=== PATIENT | female | born 1975 | race Caucasian/White ===

== ENCOUNTER 2019-07-09 07:25 | Inpatient (IN) ==
[~2019-07-09 07:25] MED LIST: CITRIC ACID/SODIUM CITRATE 15 ML UDC PO SCH
--- OUTSIDE RECORDS SUMMARY | 2019-07-09 07:28 | External Medical Summary | Continuity of Care Document ---
:1975 Author Name Erica Langley, Provider Address Unavailable Unavailable , Care Team Providers Name Role Phone Unavailable Unavailable Unavailable PCP, UNKNOWN Unavailable Unavailable Unavailable Unavailable Unavailable Assessments Assessed Problems:Blighted Ovum Problems Elderly multigravida with antepartum con dition or complication (659.63) (O09.529) Supervision of normal (V22.1) (Z34.90) Blighted Ovum (631) Encounter for routine gynecological examination (V72.31) (Z0 1.419) Headache (784.0) (R51) Esophageal reflux (530.81) (K21.9) , threatened, antepartum (640.03) (O20.0) Allergies and Adverse Reactions No Known Drug Allergies (Allergy) Medications Medications not documented Procedures History of Appendectomy Status: Complete d Supervision of normal Immunizations Immunizations not documented Plan of Treatment Planned Observations Planned Goals not documented Results No Known Results Results not documented
[2019-07-09] MEDS ORDERED: OXYTOCIN 30 UNITS/500 ML BAG IV PRN (08:38)
[2019-07-09] MEDS ORDERED: PENICILLIN G POTASSIUM 6 MU in DEXTROSE 5% 250 ML IV STA (08:38)
[2019-07-09] MEDS: LACTATED RINGER'S 1,000 ML IV PRN ×2 (08:57→13:16)
[2019-07-09 09:02] LABS: Hematocrit (blood only) 34.7 % (37-47); Hemoglobin 11.8 g/dL (12.0-16.0); Mean Corpuscular Hemoglobin 30.6 pg (25-34); Mean Corpuscular Volume 89.9 fL (80-100); Mean Platelet Volume 10.5 fL (7.4-10.4); Platelet Count 147 K/uL (130-400); RDW Coefficient of Variation 14.3 % (11.5-14.5); RDW Standard Deviation 46.7 fL (36.4-46.3); Red Blood Count 3.86 M/uL (4.2-5.4); White Blood Count 9.17 K/uL (4.8-10.8)
[2019-07-09 09:25] LABS: Alanine Aminotransferase 19 U/L (12-78); Albumin Level 2.5 gm/dl (3.4-5.0); Aspartate Aminotransferase 19 U/L (15-37); BUN Creatinine Ratio 9.6 (10-20); Bilirubin Direct < 0.1 mg/dl (0-0.2); Blood Urea Nitrogen 6 mg/dl (7-18); Calcium 8.5 mg/dl (8.5-10.1); Carbon Dioxide 23 mmol/L (21-32); Chloride 109 mmol/L (98-107); Creatinine Clr Calc Pharmacy 150.6 ml/min; Est GFR (African American) 129.2; Est GFR (Non-African American) 111.5; Glucose 95 mg/dl (70-99); Potassium 3.8 mmol/L (3.5-5.1); Sodium 139 mmol/L (136-145)
[2019-07-09 09:27] LABS: Albumin Globulin Ratio 0.6 (0.9-2); Alkaline Phosphatase 93 U/L (45-117); Bilirubin,Total 0.2 mg/dl (0.2-1); Total Protein 6.5 gm/dl (6.4-8.2)
[2019-07-09] MEDS ORDERED: LACTATED RINGER'S 1,000 ML IV SCH ×3 (10:15→15:45)
--- NOTE | 2019-07-09 10:16 | History & Physical Report ---
Date of Service July 09, 2019 Assessment & Plan (1) Pre-existing diabetes mellitus during in third trimester: (2) Transverse lie: 44 yo at 39.1 wks with transverse lie, Type II DM, on insulin, CHT on Labetalol and Aspirin and Class II Obesity, GSB+ VSS Afebrile FHR reassuring Discussed ECV with risks and benefits and success rate Discussed Primary C section as major surgery with its risks She declined ECV and desires Primary C section All questions were answered (3) Pre-existing diabetes mellitus affecting in third trimester, antepartum: (4) Chronic hypertension during , antepartum: (5) Obesity affecting in third trimester, antepartum: History of Present Illness Primary Care Provider: NO PCP Patient is a 44 yo female at 39.1 wks ( confirmed with 1st trimester US) who is scheduled for IOL at term with oblique presentation, from office on 07/06 She has no complaints No cyxs/ LOF/VB +FM's No WRIGHT/ Change in vision/ N&V Her has been complicated by 1) AMA: declined genetic screening 2) Type II DM, on insulin 3) CHT: on Labetalol, Aspirin 4) GBS+ 5) h/o macrosomia 6) Class II Obesity Allergies Allergy/AdvReac Type Severity Reaction Status Date / Time metformin AdvReac Gastrointestinal Verified 07/09/19 07:20 Upset Home Medications Home Medications Medication Instructions Recorded Confirmed Type PNV cmb#95-ferrous fumarate-FA 1 tab PO DAILY 07/09/19 07/09/19 History [] aspirin 81 mg PO DAILY 07/09/19 07/09/19 History ferrous sulfate [iron] 1 mg PO DAILY 07/09/19 07/09/19 History insulin glargine [Lantus Solostar 44 unit SUBCUT HS 07/09/19 07/09/19 History U-100 Insulin] labetalol 100 mg PO BID 07/09/19 07/09/19 History Patient History Medical History Advanced maternal age (AMA), 40 years or greater Dyslipidemia Hypertension affecting for past 7 years Pertussis 2015 Type 2 diabetes mellitus for past 7 years; has been on Insulin Surgical History Hx of appendectomy 1990 Family History Sister Diabetes Social History Preferred Language: Georgian Communication Ability: Effective Clinical Care Coordinator Required: Yes Beliefs That Will Affect Care: None marital status: Current Living Situation: Spouse and Family Other Information That Helps Us Care for You: No Feels Safe at Home: Yes Safety Concerns: Feels Safe At This Time Smoking Status: Never smoker Hx Alcohol Use: No Hx Substance Use: No OB History 7 FT 's 1 SAB Review of Systems All systems reviewed & are unremarkable except as noted in HPI & below Physical Exam Constitutional: WD/WN, vitals as above well developed and well nourished Comfortable Gastrointestinal (Abdomen): Abd: soft, NT, Gravid and obese Genitourinary: normal external appearance Cervix : 1-2 cm/ thick, -5, no presenting part Bed side US: Head at left uterus, back up transverse, Placenta anterior, EDGARDO 16 cm Results & Data Vital Signs (Past 12 Hours) Vital Signs Temp Pulse Resp BP 07/09/19 08:05 93 H 141/81 H 07/09/19 07:52 37.1 C 93 H 20 143/81 H 07/09/19 07:33 93 H 143/81 H 07/09/19 07:32 37.1 C 20 Laboratory Results Lab Results 07/09/19 07/09/19 07/09/19 Range/Units 08:42 08:49 08:49 WBC 9.17 (4.8-10.8) K/uL RBC 3.86 L (4.2-5.4) M/uL Hgb 11.8 L (12.0-16.0) g/dL Hct 34.7 L (37-47) % MCV 89.9 (80-100) fL MCH 30.6 (25-34) pg MCHC 34.0 (32-36) g/dL RDW Std Deviation 46.7 H (36.4-46.3) fL RDW Coeff of Fatuma 14.3 (11.5-14.5) % Plt Count 147 (130-400) K/uL MPV 10.5 H (7.4-10.4) fL Sodium (136-145) mmol/L Potassium (3.5-5.1) mmol/L Chloride (98-107) mmol/L Carbon Dioxide (21-32) mmol/L Anion Gap (3-11) BUN (7-18) mg/dl Creatinine (0.6-1.2) mg/dl Est Cr Clr Drug Dosing ml/min Est GFR ( Amer) Est GFR (Non-Af Amer) BUN/Creatinine Ratio (10-20) Glucose (70-99) mg/dl POC Glucose 101 H (70-99) mg/dl Calcium (8.5-10.1) mg/dl Total Bilirubin (0.2-1) mg/dl Direct Bilirubin (0-0.2) mg/dl AST (15-37) U/L ALT (12-78) U/L Alkaline Phosphatase (45-117) U/L Total Protein (6.4-8.2) gm/dl Albumin (3.4-5.0) gm/dl Globulin (2.5-4.0) gm/dl Albumin/Globulin Ratio (0.9-2) Blood Type AB Positive Antibody Screen NEGATIVE 07/09/19 Range/Units 08:49 WBC (4.8-10.8) K/uL RBC (4.2-5.4) M/uL Hgb (12.0-16.0) g/dL Hct (37-47) % MCV (80-100) fL MCH (25-34) pg MCHC (32-36) g/dL RDW Std Deviation (36.4-46.3) fL RDW Coeff of Fatuma (11.5-14.5) % Plt Count (130-400) K/uL MPV (7.4-10.4) fL Sodium 139 (136-145) mmol/L Potassium 3.8 (3.5-5.1) mmol/L Chloride 109 H (98-107) mmol/L Carbon Dioxide 23 (21-32) mmol/L Anion Gap 7.0 (3-11) BUN 6 L (7-18) mg/dl Creatinine 0.59 L (0.6-1.2) mg/dl Est Cr Clr Drug Dosing 150.6 ml/min Est GFR ( Amer) 129.2 Est GFR (Non-Af Amer) 111.5 BUN/Creatinine Ratio 9.6 L (10-20) Glucose 95 (70-99) mg/dl POC Glucose (70-99) mg/dl Calcium 8.5 (8.5-10.1) mg/dl Total Bilirubin 0.2 (0.2-1) mg/dl Direct Bilirubin < 0.1 (0-0.2) mg/dl AST 19 (15-37) U/L ALT 19 (12-78) U/L Alkaline Phosphatase 93 (45-117) U/L Total Protein 6.5 (6.4-8.2) gm/dl Albumin 2.5 L (3.4-5.0) gm/dl Globulin 4.0 (2.5-4.0) gm/dl Albumin/Globulin Ratio 0.6 L (0.9-2) Blood Type Antibody Screen Code Status & VTE Plan VTE Prophylaxis Plan VTE Prophylaxis will be ordered: No Monitoring External Monitor NST Reactive Tocodynamometer No ctxs (1) Transverse lie Fetus number: single or unspecified fetus Qualified Code(s): O32.2XX0 - Maternal care for transverse and oblique lie, not applicable or unspecified
[2019-07-09] MEDS ORDERED: CEFAZOLIN 3000MG 65 ML IV SCH (11:00)
--- NOTE | 2019-07-09 12:20 | Anesthesiology Consultation ---
Date of Service July 09, 2019 Assessment & Plan Chart Review Chart Review: Acceptable Risk for Surgery ASA [id number] Proposed Anesthesia Anesthesia Type: Spinal Risk / Benefits Reviewed With: PT / POA / Parent / Guardian, Accepts Plan and Informed Consent Obtained History Surgery Operation Date: 07/09/19 14:00 Proposed Procedures p Section in LD(Bilateral) - Nisa Lambert MD Height/Weight Height: 5 ft 6 in Weight: 107.048 kg Allergies Allergy/AdvReac Type Severity Reaction Status Date / Time metformin AdvReac Gastrointestinal Verified 07/09/19 07:20 Upset Medications Home Medications Medication Instructions Recorded Confirmed Last Taken PNV cmb#95-ferrous fumarate-FA 1 tab PO DAILY 07/09/19 07/09/19 07/08/19 23:00 [] aspirin 81 mg PO DAILY 07/09/19 07/09/19 07/08/19 23:00 ferrous sulfate [iron] 1 mg PO DAILY 07/09/19 07/09/19 07/08/19 23:00 insulin glargine [Lantus Solostar 44 unit SUBCUT HS 07/09/19 07/09/19 07/08/19 23:00 U-100 Insulin] labetalol 100 mg PO BID 07/09/19 07/09/19 07/08/19 23:00 Active Medications Generic Name Dose Route Start Last Admin Trade Name Freq PRN Reason Stop Dose Admin Lactated Ringer's 1,000 mls @ 150 mls/hr 07/09/19 08:38 07/09/19 08:57 Lr IV 07/11/19 08:37 150 mls/hr .[id number] PRN Administration L&D Protocol Protocol NPO Date Last Intake of Fluids: 07/09/19 Time Last Intake of Fluids: 06:30 Date Last Intake of Solids: 07/09/19 Time Last Intake of Solids: 06:30 Past Medical History Medical History Advanced maternal age (AMA), 40 years or greater Dyslipidemia Hypertension affecting for past 7 years Pertussis 2015 Type 2 diabetes mellitus for past 7 years; has been on Insulin Past Family History Family History Sister Diabetes Past Surgical History Surgical History Hx of appendectomy 1990 Social History Smoking Status: Never smoker Hx Alcohol Use: No Hx Substance Use: No Review of Systems denies fever/cough/ colds/ chest pain/ SOB/ VIRY Constitutional: no fever and no chills Respiratory: no cough and no dyspnea denies VIRY Cardiovascular: no chest pain and no dyspnea on exertion Physical Exam Vital Signs Last Vital Signs Temp 37.1 C 07/09/19 07:52 Pulse 96 H 07/09/19 11:06 Resp 20 07/09/19 07:52 BP 168/86 H 07/09/19 11:06 ENMT Mouth: no TMJ abnormality and no dentition abnormality Thyromental Distance: > or= 3.5 Finger Breadths Mallampati Class: II Neck neck extension not limited Respiratory normal respiratory effort; no respiratory distress Auscultation: lungs clear to auscultation bilaterally Cardiovascular Rate/Rhythm: regular rate and regular rhythm Neurologic moves all extremities Psychiatric Orientation: alert and oriented x 3 Testing Laboratory Results 07/09/19 08:49 07/09/19 08:49 Blood Type AB Positive 07/09/19 08:49 Antibody Screen NEGATIVE 07/09/19 08:49 07/09/19 07/09/19 11:01 08:42 POC Glucose 85 101 H
[2019-07-09] MEDS ORDERED: SODIUM CHLORIDE 0.9% 250 ML IV PRN (13:35)
[2019-07-09] MEDS ORDERED: OXYTOCIN 10 UNITS/ML VIAL ONE (13:48)
[2019-07-09] MEDS ORDERED: fentaNYL citrate 100 MCG/2 ML VIAL ONE (13:48)
[2019-07-09] MEDS ORDERED: MoRPHine SULFATE PF 1 MG/ML 10 ML AMP/VIAL ONE (13:48)
--- NOTE | 2019-07-09 14:13 | Obstetrical Progress Note ---
Date of Service July 09, 2019 Subjective Patient is asked for desire for tubal sterilization through lubrication supervisor She declined Results & Data Vital Signs (Past 12 Hours) Vital Signs Temp Pulse Resp BP 07/09/19 12:33 36.5 C 83 20 159/78 H 07/09/19 11:06 96 H 168/86 H 07/09/19 08:05 93 H 141/81 H 07/09/19 07:52 37.1 C 93 H 20 143/81 H 07/09/19 07:33 93 H 143/81 H 07/09/19 07:32 37.1 C 20
[2019-07-09] MEDS ORDERED: NALOXONE HCL 1 MG in SODIUM CHLORIDE 0.9% 1000ML 1,000 ML IV PRN (14:47)
[2019-07-09] MEDS ORDERED: KETOROLAC 30 MG/ML VIAL IV PRN (14:47)
[2019-07-09] MEDS ORDERED: MoRPHine SULFATE PF 1 MG/ML 10 ML AMP/VIAL INT SPINAL ONE (14:47)
[2019-07-09] MEDS ORDERED: NALBUPHINE HCL INJ 10 MG/ML AMP IV PRN (14:47)
[2019-07-09] MEDS ORDERED: NALOXONE HCL 0.08 MG in SYRINGE 1.8 ML IV PRN (14:47)
[2019-07-09] MEDS ORDERED: DiphenhydrAMINE HCL 50 MG/ML VIAL IV PRN (14:47)
[2019-07-09] MEDS ORDERED: ePHEDrine sulfate 50 MG/ML AMP IV PRN (14:47)
[2019-07-09] MEDS ORDERED: ONDANSETRON INJ 2 MG/ML 2 ML VIAL IV PRN (14:47)
[2019-07-09] MEDS ORDERED: LACTATED RINGER'S 500 ML IV PRN (14:47)
[2019-07-09] MEDS ORDERED: PROMETHAZINE HCL 6.25 MG in SODIUM CHLORIDE 0.9% 50 ML IV PRN (14:47)
[2019-07-09] MEDS ORDERED: MoRPHine SULFATE 2 MG/ML CARP IV PRN (14:47)
[2019-07-09] MEDS ORDERED: NALOXONE HCL 0.4 MG/1 ML VIAL/CARP IV PRN (14:47)
[2019-07-09] MEDS ORDERED: DC INTRASPINAL MORPHINE SCH (15:00)
[2019-07-09] MEDS ORDERED: SODIUM CHLORIDE 0.9% 1000ML 1,000 ML IV SCH (15:00)
[2019-07-09] MEDS ORDERED: NO NARCOTICS OR SEDATIVES SCH (15:00)
[2019-07-09] MEDS: PENICILLIN G POTASSIUM 3 MU in DEXTROSE 5% 100 ML IV SCH ×2 (15:10→18:30)
[2019-07-09] MEDS ORDERED: MEASLES, MUMPS & RUBELLA VIRUS VIAL SQ ONE (15:45)
[2019-07-09] MEDS ORDERED: SUPERCREAM 0.870% 15 GM JAR EXT PRN (15:45)
[2019-07-09] MEDS ORDERED: DIPHTHERIA/TETANUS/PERTUSSIS 0.5 ML SYR/VIAL IM ONE (15:45)
[2019-07-09] MEDS ORDERED: HYDROCORTISONE ACETATE 25 MG SUPP PR PRN (15:45)
[2019-07-09] MEDS ORDERED: BENZOCAINE 20% AER SPR 82.5 GM CAN EXT PRN (15:45)
[2019-07-09] MEDS ORDERED: SENNA 8.6 MG TAB PO PRN (15:45)
--- NOTE | 2019-07-09 15:53 | Post Operative Brief Note ---
Immediate Post Op Note v1 Date of Surgery July 09, 2019 Pre & Post Diagnosis Operation Date: 07/09/19 14:00 Pre-Op Diagnosis: Transverse Lie Post-Op Diagnosis: Same;delivery of a live female child at 1442 I identified the patient and participated in the time-out.: Yes Procedure Operation Date: 07/09/19 14:00 Actual Procedures p Section in LD - Nisa Lambert MD Surgeon Nisa Lambert MD Business Development Director Dr. Romero Estimated Blood Loss 1,100 Findings Consistent with Post-Op Diagnosis Fluids 1600 ml LR Drains Laureano Catheter Anesthesia Type Spinal Complications none Disposition Accompanied Patient To Recovery: Yes Disposition: L&D
--- NOTE | 2019-07-09 16:05 | Anesthesiology Progress Note ---
Date of Service July 09, 2019 Anesthesia Post Procedure Vital Signs Vital Signs: Temp Pulse Resp BP Pulse Ox 07/09/19 16:00 84 99 07/09/19 15:58 76 137/77 07/09/19 15:56 84 90 07/09/19 15:55 85 100 07/09/19 15:50 71 141/71 H 99 07/09/19 15:47 81 138/77 07/09/19 15:45 79 99 07/09/19 12:33 36.5 C 83 20 159/78 H 07/09/19 11:06 96 H 168/86 H 07/09/19 08:05 93 H 141/81 H 07/09/19 07:52 37.1 C 93 H 20 143/81 H 07/09/19 07:33 93 H 143/81 H 07/09/19 07:32 37.1 C 20 Transfer of Care Handoff Completed per policy Notes Mental Status: alert / awake / arousable and participated in evaluation Patient Amnestic to Procedure: Yes Nausea / Vomiting: adequately controlled Pain: adequately controlled Airway Patency, RR, SpO2: stable & adequate BP & HR: stable & adequate Hydration State: stable & adequate Anesthetic Complications: no major complications apparent and Pt Satisfied with anesthetic care
[2019-07-09 16:42] LABS: Basophils # (auto) 0.03 K/uL (0-0.2); Basophils % (auto) 0.2 %; Eosinophils # (auto) 0.06 K/uL (0-0.5); Eosinophils % (auto) 0.5 %; Hematocrit (blood only) 34.6 % (37-47); Hemoglobin 11.7 g/dL (12.0-16.0); Immature Granulocytes # (auto) 0.06 K/uL (0.00-0.02); Immature Granulocytes % (auto) 0.5 %; Lymphocytes # (auto) 1.49 K/uL (1.2-3.4); Lymphocytes % (auto) 12.3 %; Mean Corpuscular Hemoglobin 30.5 pg (25-34); Mean Corpuscular Hgb Conc 33.8 g/dL (32-36); Mean Corpuscular Volume 90.3 fL (80-100); Mean Platelet Volume 10.5 fL (7.4-10.4); Monocytes # (auto) 0.53 K/uL (0.11-0.59); Monocytes % (auto) 4.4 %; Neutrophils # (auto) 9.99 K/uL (1.4-6.5); Neutrophils % (auto) 82.1 %; Platelet Count 154 K/uL (130-400); RDW Coefficient of Variation 14.4 % (11.5-14.5); RDW Standard Deviation 47.3 fL (36.4-46.3); Red Blood Count 3.83 M/uL (4.2-5.4); White Blood Count 12.16 K/uL (4.8-10.8)
[2019-07-09 16:53] LABS: INR 0.9 (0.9-1.1); Partial Thromboplastin Ratio 0.9; Partial Thromboplastin Time 23.6 Seconds (21.0-31.0); Prothrombin Time 9.7 Seconds (9.0-12.0)
[2019-07-09] MEDS: OXYTOCIN 20 UNITS in LACTATED RINGER'S 1,000 ML IV SCH (17:22)
[2019-07-09] MEDS ORDERED: INSULIN REGULAR 250 UNITS in SODIUM CHLORIDE 0.9% 247.5 ML IV PRN (18:24)
[2019-07-09] MEDS ORDERED: DEXTROSE 5% 1,000 ML IV PRN (18:24)
[2019-07-09] MEDS ORDERED: SODIUM CHLORIDE 0.9% 1000ML 1,000 ML IV PRN (18:24)
[2019-07-09] MEDS ORDERED: DEXTROSE 50% 50 ML SYRINGE IV PRN (18:24)
[2019-07-09] MEDS ORDERED: PHARMACY GLYCEMIC MGMT CONSULT PRN (18:51)
[2019-07-09] MEDS: LABETALOL HCL 100 MG TAB PO SCH (19:38)
--- NOTE | 2019-07-09 20:51 | Pharmacy Report ---
Pharmacy Glycemic Short Note 2 - Date of Service July 09, 2019 - Glycemic Short BSG Results (Last 24 hours): 07/09/19 07/09/19 07/09/19 08:42 08:49 11:01 Glucose 95 POC Glucose 101 H 85 07/09/19 07/09/19 16:55 19:53 Glucose POC Glucose 83 78 OUTPATIENT ANTIDIABETIC REGIMEN: * Lantus 44 units SQ HS ASSESSMENT: * Patient is a 44 yo F with a history of dyslipidemia and T2DM. She was admitted for induction, but subsequently underwent a delivery today. * She is currently NPO. Reports nausea to nursing. * According to her med rec, she last took her Lantus prior to admission on the evening of 07/08. * She has not received any insulin since being admitted and blood sugars have been < 100 throughout the day. PLAN FOR INPATIENT GLYCEMIC CONTROL: * ACHS BSGs; will watch blood sugars and restart Lantus when appropriate. * Difficult to determine insulin needs so close to post-delivery. May not need Lantus for another 24-48 hours. PLAN FOR DISCHARGE: * To be assessed when patient has resumed a diet and insulin needs can be determined.
[2019-07-09] MEDS: SIMETHICONE 80 MG CHEW PO SCH (21:51)
[2019-07-09] MEDS ORDERED: CEFAZOLIN 3000MG/72.5 ML BAG IV SCH (22:00)
[2019-07-09] MEDS: CEFAZOLIN 3,000 MG in DEXTROSE 5% 50 ML IV SCH (22:21)
[2019-07-10] MEDS: LABETALOL HCL 100 MG TAB PO SCH ×3 (00:38→23:32)
--- NOTE | 2019-07-10 02:52 | Operative Report ---
DATE OF OPERATION: 07/09/2019 PREOPERATIVE DIAGNOSES: The patient is a 44-year-old G9, P7-0-1-7 female at 39 weeks and 1 day of gestation with a transverse lie fetus and declines external cephalic version desires primary elective section. POSTOPERATIVE DIAGNOSES: The patient is a 44-year-old G9, P7-0-1-7 female at 39 weeks and 1 day of gestation with a transverse lie fetus and declines external cephalic version desires primary elective section. PROCEDURE: Primary low transverse with Pfannenstiel skin incision. SURGEON: Nisa Lambert MD SECOND CLASS WELDER: Dr. Romero. ANESTHESIA: Spinal. ANESTHESIOLOGIST: Dr. Guevara. ESTIMATED BLOOD LOSS: 1100 mL FLUIDS: 1600 mL of lactated ringer. DRAINS: Laureano catheter drained 100 mL of clear urine. COMPLICATIONS: None. FINDINGS: Baby was a viable female infant, delivered at 1442 p.m. Apgars 8/9, weight was 3660 grams in a transfer lie, version was done in the OR by palpation of the uterus. Maternal findings large bulky uterus, normal fallopian tubes and ovaries. DESCRIPTION OF PROCEDURE: The patient was taken to the operating room where spinal anesthesia was given without difficulty. She was placed in dorsal supine position with a leftward tilt. She was prepared and draped in usual sterile fashion, Pfannenstiel skin incision was made and carried through to the underlying layer of fascia with the Bovie. Fascia was incised in the midline and incision was extended laterally with the help of Serrano scissors. Upper aspect of the fascial incision was then grasped with 2 Nisha clamps, elevated, underlying rectus muscles were dissected off sharply with Serrano scissors. Lower aspect of the fascial incision was then grasped with 2 Nisha clamps, elevated, underlying rectus muscles were dissected off sharply with Serrano scissors. Rectus muscles were in the midline. Peritoneum was identified, entered bluntly with fingers. Peritoneal incision was extended superiorly and inferiorly with good visualization of the bladder. Bladder blade was inserted. Vesicouterine peritoneum was identified, grasped with pickups, entered sharply with Metzenbaum scissors and bladder flap was created digitally and bladder blade was reinserted. Lower uterine segment was incised in transverse fashion, incision was extended laterally with the help of bandage scissors. Membranes were ruptured. Clear fluid was obtained. Baby's head was delivered. There was a nuchal cord around the neck x2 which were reduced and then the baby's shoulders were delivered with minimal traction. Mouth and nose were suctioned. Cord was clamped x2 and cut at 1 minute delay and baby was handed to the waiting services executive. Cord blood was obtained. Placenta was delivered manually as intact and complete. Uterus was exteriorized, cleared of all clots and debris. The uterine incision was repaired with 0 Vicryl in a running locked fashion. A second imbricating layer was placed with another 0 Vicryl in a running locked fashion. Excellent hemostasis was achieved. Cul-de-sac was irrigated with warm normal saline and suctioned. Uterus was returned to the abdomen. The pelvis was irrigated with warm normal saline and suctioned. Incision was checked to be hemostatic again. Then parietal peritoneum was reapproximated with 3-0 Vicryl in a running fashion and the rectus muscles were hemostatic and the fascia was closed with #1 Vicryl in a running fashion starting from both corners meeting in the midline and subcuticular fat tissue was reapproximated with 3-0 Vicryl in a running fashion. Skin was closed with 4-0 Monocryl in a subcuticular fashion. The patient tolerated the procedure well. Sponge, lap, needle count was correct x3. No complications happened. I was and Dr. Romero was present during whole procedure. I attest to the content of the Intraoperative Record and any orders documented therein. Any exceptions are noted below. KISHOR
[2019-07-10] MEDS: OXYTOCIN 20 UNITS in LACTATED RINGER'S 1,000 ML IV SCH (03:00)
[2019-07-10] MEDS: CEFAZOLIN 3,000 MG in DEXTROSE 5% 50 ML IV SCH ×2 (06:01→14:56)
[2019-07-10 07:44] LABS: Basophils # (auto) 0.03 K/uL (0-0.2); Basophils % (auto) 0.2 %; Eosinophils # (auto) 0.07 K/uL (0-0.5); Eosinophils % (auto) 0.5 %; Hematocrit (blood only) 30.9 % (37-47); Hemoglobin 10.5 g/dL (12.0-16.0); Immature Granulocytes # (auto) 0.04 K/uL (0.00-0.02); Immature Granulocytes % (auto) 0.3 %; Lymphocytes # (auto) 1.66 K/uL (1.2-3.4); Mean Corpuscular Hemoglobin 30.5 pg (25-34); Mean Corpuscular Volume 89.8 fL (80-100); Mean Platelet Volume 10.3 fL (7.4-10.4); Monocytes # (auto) 0.96 K/uL (0.11-0.59); Monocytes % (auto) 7.5 %; Neutrophils # (auto) 10.02 K/uL (1.4-6.5); Neutrophils % (auto) 78.5 %; Platelet Count 140 K/uL (130-400); RDW Coefficient of Variation 14.4 % (11.5-14.5); RDW Standard Deviation 47.6 fL (36.4-46.3); Red Blood Count 3.44 M/uL (4.2-5.4); White Blood Count 12.78 K/uL (4.8-10.8)
[2019-07-10] MEDS ORDERED: DiphenhydrAMINE HCL 50 MG/ML VIAL IV PRN (08:48)
[2019-07-10] MEDS ORDERED: MEPERIDINE HCL 50 MG/ML CARP IV PRN (08:48)
[2019-07-10] MEDS ORDERED: ONDANSETRON INJ 2 MG/ML 2 ML VIAL IV PRN (08:48)
[2019-07-10] MEDS ORDERED: PROMETHAZINE HCL 25 MG in SODIUM CHLORIDE 0.9% 50 ML IV PRN (08:48)
[2019-07-10] MEDS ORDERED: KETOROLAC 30 MG/ML VIAL IV PRN (08:48)
[2019-07-10] MEDS: INSULIN ASPART 100 UNITS/ML 3 ML PEN SC SCH ×2 (08:59→23:00)
[2019-07-10] MEDS: OXYCODONE/ACETAMINOPHEN 5mg/325mg TAB PO PRN ×2 (09:01→23:56)
[2019-07-10] MEDS: SIMETHICONE 80 MG CHEW PO SCH ×4 (09:02→20:15)
[2019-07-10] MEDS: DOCUSATE SODIUM 100 MG CAP PO SCH ×2 (09:02→20:15)
[2019-07-10] MEDS: PRENATAL VITAMIN 1 TAB PO SCH (09:02)
[2019-07-10] MEDS: FERROUS SULFATE 325 MG TAB PO SCH (09:02)
--- NOTE | 2019-07-10 10:49 | Communication Note ---
Date of Service: July 10, 2019 Pt is s/p csection on 07/09/2019. pt had a SAB. Pt is w/o c/o H/A. Pt is neurologically intact. pt has been up and ambulating.
--- NOTE | 2019-07-10 11:27 | Obstetrical Progress Note ---
Date of Service July 10, 2019 Assessment & Plan (1) Pre-existing diabetes mellitus during in third trimester: (2) Transverse lie: 44 yo s/p section, POD #0 1. Continue to monitor 2. Pain control with Percocet and Ibuprofen 3. Encourage ambulation 4. Transition diet (3) Pre-existing diabetes mellitus affecting in third trimester, antepartum: (4) Chronic hypertension during , antepartum: (5) Obesity affecting in third trimester, antepartum: Subjective Patient , POD # 0, s/p section for transverse lie fetus. Patient doing well, reports mild tenderness with ambulation. She reports pain is well tolerated with PO pain medications. She has ambulated and voided without difficulty. She denies flatus, reports + belching. She reports appropriate lochia. She denies nipple discomfort, breast feeding is going well. Tolerating clear liquid diet and desire to transition to regular diet. She reported headache this AM, has history of migraines, relief and full resolution with Percocet. She denies vision changes, SOB or chest pain. She denies LE pain. Review of Systems Review of Systems: All systems reviewed & are unremarkable except as noted in HPI & below Physical Exam Constitutional: WD/WN, vitals as above Chest (Breasts): normal inspection/palpation of breasts Gastrointestinal (Abdomen): Inspection/Auscultation: abdomen normal to inspection Percussion/Palpation: + abdomen tender (expected post operative tenderness) and abdomen soft fundus firm, below U Genitourinary: normal external appearance Results & Data Vital Signs (Past 12 Hours) Vital Signs Temp Pulse Resp BP Pulse Ox 07/10/19 06:00 18 97 07/10/19 05:00 18 96 07/10/19 04:00 37.0 C 91 H 18 132/78 96 07/10/19 03:00 18 98 07/10/19 02:00 18 98 07/10/19 01:00 18 98 07/10/19 00:38 36.8 C 99 H 18 134/78 98 07/10/19 00:00 18 98 (1) Transverse lie Fetus number: single or unspecified fetus Qualified Code(s): O32.2XX0 - Maternal care for transverse and oblique lie, not applicable or unspecified
[2019-07-10] MEDS: IBUPROFEN 600 MG TAB PO PRN (11:46)
--- NOTE | 2019-07-10 14:33 | Pharmacy Report ---
Pharmacy Glycemic Short Note 2 - Date of Service July 10, 2019 - Glycemic Short BSG Results (Last 24 hours): 07/09/19 07/09/19 07/10/19 16:55 19:53 00:40 POC Glucose 83 78 62 L* 07/10/19 07/10/19 08:59 12:03 POC Glucose 79 87 OUTPATIENT ANTIDIABETIC REGIMEN: * Lantus 44 units SQ HS ASSESSMENT: * Patient is a 44 yo T2DM female s/p on 07/09 * She has not received any insulin since being admitted and BSGs remain less than 100 mg/dL. Typically the effects of on endogenous insulin levels dissipate at 24-48 hours post delivery. * I will with hold adding basal insulin and carb coverage until BSG is consistently > 160 mg/dL PLAN FOR INPATIENT GLYCEMIC CONTROL: Continue Novolog ACHS * Goal range: 140-180 mg/dL * Correction factor: 30 Pending order -> if BSG is > 160 mg/dL x 2 consecutive checks, start: * Lantus 20 units SQ x 1 * Novolog CF: 30, CR: 12
[2019-07-10] MEDS ORDERED: Nursing to Pharmacy Communication ONE (18:12)
[2019-07-10] MEDS ORDERED: bisacodyL 5 MG TABEC PO SCH (20:00)
[2019-07-11] MEDS ORDERED: EXCEDRIN: ORDER AWAITING ACTION SCH
[2019-07-11 06:24] LABS: Hematocrit (blood only) 30.4 % (37-47)
--- NOTE | 2019-07-11 08:12 | Obstetrical Progress Note ---
Date of Service July 11, 2019 Physical Exam Physical Exam: abdomen soft and non tender passing flatus incision clean dressing functioning well no calf tenderness vaginal bleeding scant hgb 10.0 Results & Data Vital Signs (Past 12 Hours) Vital Signs Temp Pulse Pulse Resp BP Pulse Ox 07/11/19 07:30 36.6 C 103 H 18 147/84 H 97 07/11/19 01:05 36.8 C 95 H 16 142/86 H 96 07/10/19 21:08 36.7 C 111 H 20 151/94 H 07/10/19 21:00 130/83
[2019-07-11] MEDS: INSULIN ASPART 100 UNITS/ML 3 ML PEN SC SCH ×4 (09:10→20:53)
[2019-07-11] MEDS: MAGNESIUM HYDROXIDE SUSP 30 ML UDC PO PRN (09:11)
[2019-07-11] MEDS: FERROUS SULFATE 325 MG TAB PO SCH (09:12)
[2019-07-11] MEDS: SIMETHICONE 80 MG CHEW PO SCH ×4 (09:12→20:59)
[2019-07-11] MEDS: DOCUSATE SODIUM 100 MG CAP PO SCH ×2 (09:12→20:59)
[2019-07-11] MEDS: PRENATAL VITAMIN 1 TAB PO SCH (09:12)
[2019-07-11] MEDS: OXYCODONE/ACETAMINOPHEN 5mg/325mg TAB PO PRN ×3 (09:13→17:56)
[2019-07-11] MEDS: IBUPROFEN 600 MG TAB PO PRN ×3 (09:14→17:55)
[2019-07-11] MEDS: LABETALOL HCL 100 MG TAB PO SCH ×2 (09:15→20:59)
--- NOTE | 2019-07-11 14:07 | Pharmacy Report ---
Glycemic Control Progress Note - Date of Service July 11, 2019 - Scope Glycemic Pharmacist consulted for glycemic control to write orders per [facility] inpatient glycemic control protocol. - Objective Accuchecks BSG(last 24 hours):: 07/10/19 07/10/19 07/11/19 17:11 23:27 07:51 POC Glucose 124 H 127 H 115 H 07/11/19 12:17 POC Glucose 128 H - Recent Pertinent Medications The patient is currently receiving: * Basal insulin: Lantus -- units every -- hours * Correctional Insulin: Novolog Correction per scale ACHS Goal Range: Low 140 mg/dL - High 180 mg/dL Correction Factor: 30 mg/dL/unit * Prandial insulin: Per carb ratio of 1 unit per -- grams CHO consumed - Outpatient Anti-Diabetic Meds Lantus 44 units HS - Assessment & Plan ASSESSMENT: * See progress note from 07/09/2019 for more background info, in short: * Pt receiving SQ basal bolus insulin regimen for hyperglycemia secondary to baseline DM (outpatient regimen on hold). * Patient is currently receiving an average of 0 units of insulin per day * 0 units of basal insulin * 0 units of prandial/correctional insulin * BSGs ranging 79 - 127 mg/dl over the past 24hrs * Changes needed to insulin regimen: * AM Fasting BSG = 115 mg/dl. This is in goal range for patient based on inpatient targets and co-morbidities. Therefore Basal insulin will continue to be held. * Post-prandial BSGs are in range therefore no changes needed to CF/CR. * Total daily dose = <10 units. PLAN FOR INPATIENT GLYCEMIC CONTROL: * Continuing to hold Lantus * Continuing correction factor of 30 mg/dl/unit * Continuing goal range of Low 140 mg/dL - High 180 mg/dL RECOMMENDATIONS FOR DISCHARGE: * Spoke with patient and her daughter. Patient followed by Dr Hernandez. She does not know what Lantus dose she was on prior to . * Recommended they follow-up with physician managing blood sugars for dosing after hospital discharge. Thank you.
[2019-07-11] MEDS ORDERED: bisacodyL 10 MG SUPP PR PRN (15:45)
[2019-07-12] MEDS: IBUPROFEN 600 MG TAB PO PRN ×2 (03:26→08:46)
--- NOTE | 2019-07-12 08:24 | Surgery Progress Note ---
Date of Service July 12, 2019 Subjective doing well Physical Exam Constitutional: WD/WN, vitals as above comfortable abdomen soft and non- tender incision clean dry and intact neg edwema neg Mauricio's for discharge follow up with PCP for insulin follow up [employer] in 1 week Results & Data Vital Signs (Past 12 Hours) Vital Signs Temp Pulse Resp BP 07/12/19 00:45 36.6 C 99 H 16 144/89 H 07/11/19 20:48 97 H 146/88 H Laboratory Results 07/09/19 07/09/19 07/09/19 08:42 08:49 08:49 WBC 9.17 RBC 3.86 L Hgb 11.8 L Hct 34.7 L MCV 89.9 MCH 30.6 MCHC 34.0 RDW Std Deviation 46.7 H RDW Coeff of Fatuma 14.3 Plt Count 147 MPV 10.5 H Immature Gran % (Auto) Neut % (Auto) Lymph % (Auto) Gaston % (Auto) Eos % (Auto) Baso % (Auto) Immature Gran # (Auto) Neut # (Auto) Lymph # (Auto) Gaston # (Auto) Eos # (Auto) Baso # (Auto) PT INR APTT PTT Ratio Sodium Potassium Chloride Carbon Dioxide Anion Gap BUN Creatinine Est Cr Clr Drug Dosing Est GFR ( Amer) Est GFR (Non-Af Amer) BUN/Creatinine Ratio Glucose POC Glucose 101 H Calcium Total Bilirubin Direct Bilirubin AST ALT Alkaline Phosphatase Total Protein Albumin Globulin Albumin/Globulin Ratio Blood Type AB Positive Blood Type Recheck Antibody Screen NEGATIVE Crossmatch See Detail 07/09/19 07/09/19 07/09/19 08:49 11:01 16:27 WBC 12.16 H RBC 3.83 L Hgb 11.7 L Hct 34.6 L MCV 90.3 MCH 30.5 MCHC 33.8 RDW Std Deviation 47.3 H RDW Coeff of Fatuma 14.4 Plt Count 154 MPV 10.5 H Immature Gran % (Auto) 0.5 Neut % (Auto) 82.1 Lymph % (Auto) 12.3 Gaston % (Auto) 4.4 Eos % (Auto) 0.5 Baso % (Auto) 0.2 Immature Gran # (Auto) 0.06 H Neut # (Auto) 9.99 H Lymph # (Auto) 1.49 Gaston # (Auto) 0.53 Eos # (Auto) 0.06 Baso # (Auto) 0.03 PT INR APTT PTT Ratio Sodium 139 Potassium 3.8 Chloride 109 H Carbon Dioxide 23 Anion Gap 7.0 BUN 6 L Creatinine 0.59 L Est Cr Clr Drug Dosing 150.6 Est GFR ( Amer) 129.2 Est GFR (Non-Af Amer) 111.5 BUN/Creatinine Ratio 9.6 L Glucose 95 POC Glucose 85 Calcium 8.5 Total Bilirubin 0.2 Direct Bilirubin < 0.1 AST 19 ALT 19 Alkaline Phosphatase 93 Total Protein 6.5 Albumin 2.5 L Globulin 4.0 Albumin/Globulin Ratio 0.6 L Blood Type Blood Type Recheck Antibody Screen Crossmatch 07/09/19 07/09/19 07/09/19 16:27 16:27 16:55 WBC RBC Hgb Hct MCV MCH MCHC RDW Std Deviation RDW Coeff of Fatuma Plt Count MPV Immature Gran % (Auto) Neut % (Auto) Lymph % (Auto) Gaston % (Auto) Eos % (Auto) Baso % (Auto) Immature Gran # (Auto) Neut # (Auto) Lymph # (Auto) Gaston # (Auto) Eos # (Auto) Baso # (Auto) PT 9.7 INR 0.9 APTT 23.6 PTT Ratio 0.9 Sodium Potassium Chloride Carbon Dioxide Anion Gap BUN Creatinine Est Cr Clr Drug Dosing Est GFR ( Amer) Est GFR (Non-Af Amer) BUN/Creatinine Ratio Glucose POC Glucose 83 Calcium Total Bilirubin Direct Bilirubin AST ALT Alkaline Phosphatase Total Protein Albumin Globulin Albumin/Globulin Ratio Blood Type Blood Type Recheck AB Positive Antibody Screen Crossmatch 07/09/19 07/10/19 07/10/19 19:53 00:40 07:34 WBC 12.78 H RBC 3.44 L Hgb 10.5 L Hct 30.9 L MCV 89.8 MCH 30.5 MCHC 34.0 RDW Std Deviation 47.6 H RDW Coeff of Fatuma 14.4 Plt Count 140 MPV 10.3 Immature Gran % (Auto) 0.3 Neut % (Auto) 78.5 Lymph % (Auto) 13.0 Gaston % (Auto) 7.5 Eos % (Auto) 0.5 Baso % (Auto) 0.2 Immature Gran # (Auto) 0.04 H Neut # (Auto) 10.02 H Lymph # (Auto) 1.66 Gaston # (Auto) 0.96 H Eos # (Auto) 0.07 Baso # (Auto) 0.03 PT INR APTT PTT Ratio Sodium Potassium Chloride Carbon Dioxide Anion Gap BUN Creatinine Est Cr Clr Drug Dosing Est GFR ( Amer) Est GFR (Non-Af Amer) BUN/Creatinine Ratio Glucose POC Glucose 78 62 L* Calcium Total Bilirubin Direct Bilirubin AST ALT Alkaline Phosphatase Total Protein Albumin Globulin Albumin/Globulin Ratio Blood Type Blood Type Recheck Antibody Screen Crossmatch 07/10/19 07/10/19 07/10/19 08:59 12:03 17:11 WBC RBC Hgb Hct MCV MCH MCHC RDW Std Deviation RDW Coeff of Fatuma Plt Count MPV Immature Gran % (Auto) Neut % (Auto) Lymph % (Auto) Gaston % (Auto) Eos % (Auto) Baso % (Auto) Immature Gran # (Auto) Neut # (Auto) Lymph # (Auto) Gaston # (Auto) Eos # (Auto) Baso # (Auto) PT INR APTT PTT Ratio Sodium Potassium Chloride Carbon Dioxide Anion Gap BUN Creatinine Est Cr Clr Drug Dosing Est GFR ( Amer) Est GFR (Non-Af Amer) BUN/Creatinine Ratio Glucose POC Glucose 79 87 124 H Calcium Total Bilirubin Direct Bilirubin AST ALT Alkaline Phosphatase Total Protein Albumin Globulin Albumin/Globulin Ratio Blood Type Blood Type Recheck Antibody Screen Crossmatch 07/10/19 07/11/19 07/11/19 23:27 06:07 07:51 WBC RBC Hgb 10.0 L Hct 30.4 L MCV MCH MCHC RDW Std Deviation RDW Coeff of Fatuma Plt Count MPV Immature Gran % (Auto) Neut % (Auto) Lymph % (Auto) Gaston % (Auto) Eos % (Auto) Baso % (Auto) Immature Gran # (Auto) Neut # (Auto) Lymph # (Auto) Gaston # (Auto) Eos # (Auto) Baso # (Auto) PT INR APTT PTT Ratio Sodium Potassium Chloride Carbon Dioxide Anion Gap BUN Creatinine Est Cr Clr Drug Dosing Est GFR ( Amer) Est GFR (Non-Af Amer) BUN/Creatinine Ratio Glucose POC Glucose 127 H 115 H Calcium Total Bilirubin Direct Bilirubin AST ALT Alkaline Phosphatase Total Protein Albumin Globulin Albumin/Globulin Ratio Blood Type Blood Type Recheck Antibody Screen Crossmatch 07/11/19 07/11/19 07/11/19 12:17 17:22 20:45 WBC RBC Hgb Hct MCV MCH MCHC RDW Std Deviation RDW Coeff of Fatuma Plt Count MPV Immature Gran % (Auto) Neut % (Auto) Lymph % (Auto) Gaston % (Auto) Eos % (Auto) Baso % (Auto) Immature Gran # (Auto) Neut # (Auto) Lymph # (Auto) Gaston # (Auto) Eos # (Auto) Baso # (Auto) PT INR APTT PTT Ratio Sodium Potassium Chloride Carbon Dioxide Anion Gap BUN Creatinine Est Cr Clr Drug Dosing Est GFR ( Amer) Est GFR (Non-Af Amer) BUN/Creatinine Ratio Glucose POC Glucose 128 H 145 H 110 H Calcium Total Bilirubin Direct Bilirubin AST ALT Alkaline Phosphatase Total Protein Albumin Globulin Albumin/Globulin Ratio Blood Type Blood Type Recheck Antibody Screen Crossmatch 07/12/19 08:11 WBC RBC Hgb Hct MCV MCH MCHC RDW Std Deviation RDW Coeff of Fatuma Plt Count MPV Immature Gran % (Auto) Neut % (Auto) Lymph % (Auto) Gaston % (Auto) Eos % (Auto) Baso % (Auto) Immature Gran # (Auto) Neut # (Auto) Lymph # (Auto) Gaston # (Auto) Eos # (Auto) Baso # (Auto) PT INR APTT PTT Ratio Sodium Potassium Chloride Carbon Dioxide Anion Gap BUN Creatinine Est Cr Clr Drug Dosing Est GFR ( Amer) Est GFR (Non-Af Amer) BUN/Creatinine Ratio Glucose POC Glucose 82 Calcium Total Bilirubin Direct Bilirubin AST ALT Alkaline Phosphatase Total Protein Albumin Globulin Albumin/Globulin Ratio Blood Type Blood Type Recheck Antibody Screen Crossmatch
[2019-07-12] MEDS: INSULIN ASPART 100 UNITS/ML 3 ML PEN SC SCH (08:44)
[2019-07-12] MEDS: FERROUS SULFATE 325 MG TAB PO SCH (08:45)
[2019-07-12] MEDS: PRENATAL VITAMIN 1 TAB PO SCH (08:45)
[2019-07-12] MEDS: MAGNESIUM HYDROXIDE SUSP 30 ML UDC PO PRN (08:45)
[2019-07-12] MEDS: DOCUSATE SODIUM 100 MG CAP PO SCH (08:45)
[2019-07-12] MEDS: OXYCODONE/ACETAMINOPHEN 5mg/325mg TAB PO PRN (08:46)
[2019-07-12] MEDS: SIMETHICONE 80 MG CHEW PO SCH (08:46)
[2019-07-12] MEDS: LABETALOL HCL 100 MG TAB PO SCH (08:47)
--- NOTE | 2019-07-18 01:37 | Discharge Summary ---
DETAILS OF ADMISSION: The patient is a 44-year-old G9, P7-0-1-7 at 39 weeks and 1 day of gestation, who was admitted with transverse lie and history of type 2 diabetes, on insulin, chronic hypertension on labetalol and aspirin, class II obesity and GBS positive. She was admitted on possible version, induction of labor versus . After discussion of the benefits and risks of external cephalic version and primary , she elected for a primary . She was admitted and she delivered a baby via primary low transverse on 07/09/2019. Baby was a viable female infant. Apgars 8/9, weight was 3660 grams. Her surgery was uncomplicated. See dictated op note for details. On postop period, the patient was doing well. Vital signs stable, afebrile. Urine output was adequate and she was continuously monitored. On postop day #1, the patient's Laureano was discontinued. She was ambulated, advanced to regular diet. She tolerated regular diet and vital signs were stable, afebrile. Physical exam was unremarkable. Abdomen was soft, nontender, nondistended. Incision was clean, dry and intact. On postop day #2, the patient was doing well, passing gas, tolerating a regular diet, ambulating. Vital signs stable, afebrile. Physical exam was unremarkable. Abdomen was soft, nontender, nondistended. Incision dressing was clean and dry. Her hemoglobin was 10. On postop day #3, the patient was doing well. Vital signs stable, afebrile. Physical exam was unremarkable. Incision was clean, dry and intact. Abdomen was soft, nontender. Bleeding was minimal. Extremities: Nontender with no edema. Her repeat H and H was 10.5/30.9 and another repeat H and H was done before discharge 10.0/30.4. The patient was discharged on the postop day #3. Discharge instructions were given when to call, prescriptions were written for pain. She is to be seen in office in a week for incision check. All questions were answered.
== END 2019-07-12 11:25 | disposition home or self-care (01) | DRG 786 ==
LOC: 4S1 07:25 → 4S2 18:39